=== PATIENT | male | born 1930 | race African-American/Black ===

== ENCOUNTER → 2016-04-17 | Outpatient (CLI) | payer MEDICARE ==
[~2016-04-17] MED LIST: ACET325T PO; ALBUAER3 INH; ARTHCRE; ASPI1TAB69 PO; BENZ100 PO; CHOL1TAB18 PO; DILT-60 PO; FLUT50SP EACH NARE; GLIP5TAB8 PO; HYDR25TA5 PO; LOSA100T PO; LUPR22.5 IM; MEDR4PAK PO; METF-382 PO; MOBI15TA PO; OXYC-432 PO; POLY99.0 EACH EYE; POTA10CA PO; PRAV80TA2 PO; PROS5TAB PO; TERA10CA3 PO; ZITHTAB PO; ZOLP10TA3 PO; [UNRECOGNIZED DRUG - CODE] IM
== END ==
LOC: CLAB 11:02
PROVIDERS: ATTEND Urology
DX: C61 Malignant neoplasm of prostate (principal)
CPT/HCPCS: 36415; 84153

== ENCOUNTER 2016-05-07 07:56 | Emergency (ER) | payer MEDICARE ==
[~2016-05-07] VITALS: Ht 185.4 cm; Wt 116.0 kg
[2016-05-07] VITALS (7 sets, daily range): BP systolic 103–135; BP diastolic 64–87; PULSE 69–131; RESP 16–18; TEMP 98.2–98.4; O2SAT 92–99
[~2016-05-07 07:56] MED LIST changes: -ALBUAER3 INH; -BENZ100 PO; -LUPR22.5 IM; -MEDR4PAK PO; -ZITHTAB PO
--- NOTE | 2016-05-07 08:09 | PD ---
HPI . SOB for several weeks Chief Complaint: shortness of breath Time Seen by Provider: 08:09 Travel History International Travel<30 days: No Contact w/Intl Traveler<30days: No Traveled to known affect area: No History of Present Illness HPI 85-year-old male with past medical history of prostate cancer in [facility], emphysema, hypertension, diabetes, GERD, chronic constipation, junctional arrhythmia, hyperlipidemia and vitamin D deficiency brought in by his daughter Jesenia who is visiting from [place]. Patient has a difficult time hearing and is somewhat of a poor historian, his daughter is providing most of the information. Daughter states that she came in from out of town last night to visit and patient was having significant shortness of breath. [facility] daughter decided to bring him into the emergency room for further workup. Patient states he's been having shortness of breath for several weeks with phlegm production. Often times the phlegm is white, but sometimes he is having yellow mucus production. He also reports bilateral feet swelling that has been ongoing. [facility] and was scheduled to see podiatry today. Today his only complaint is shortness of breath at rest. He denies any chest pain, fever, chills,, weakness, fatigue, abdominal pain, nausea or vomiting. Of note his HR is elevated at 131. PFSH Past Medical History Arthritis: Yes Blood Disorders: No Cancer: Yes (PROSTATE) Cardiovascular Problems: Yes High Cholesterol: Yes Chest Pain: No Congestive Heart Failure: No Diminished Hearing: Yes (R EAR ) Endocrine: No Gastrointestinal Disorders: Yes GERD: Yes Genitourinary: No Hypertension: Yes Immune Disorder: No Musculoskeletal: Yes Neurologic: Yes Psychiatric: No Reproductive: No Respiratory: Yes Past Surgical History Genitourinary Surgery: Yes (TURP) Neurologic Surgery: Yes (LUMBAR LAMINECTOMY) Social History Alcohol Use: Yes (SOCIALLY) Tobacco Use: No Substance Use: No Allergies-Medications (Allergen,Severity, Reaction): Coded Allergies: No Known Allergies (Verified , 01/04/16) Reported Meds & Prescriptions Reported Meds & Active Scripts Active Proair Hfa 8.5 GM Inh (Albuterol Sulfate) 90 Mcg/Act Aer 2 Puff INH Q6H PRN 108 mcg/actuation Tessalon Perles (Benzonatate) 100 Mg Cap 100 Mg PO TID PRN Zithromax Z-Catarino (Azithromycin) 250 Mg Dspk 250 Mg PO DIRECTED 500 MG (2 tabs) day 1, then 1 tab days 2-5. Medrol Dosepak (Methylprednisolone) 4 Mg Dspk 4 Mg PO DIRECTED Per Pharmacist direction Terazosin (Terazosin HCl) 10 Mg Cap 10 Mg PO HS Proscar (Finasteride) 5 Mg Tab 5 Mg PO DAILY Do not crush. Reported Zolpidem (Zolpidem Tartrate) 10 Mg Tab 10 Mg PO HS PRN Pravastatin 80 Mg Tab 80 Mg PO DAILY Potassium Chloride ER (Potassium Chloride) 10 Meq Cap 10 Meq PO DAILY Metformin ER (Metformin HCl) 1,000 Mg Riley 1,000 Mg PO BID With evening meal Mobic (Meloxicam) 15 Mg Tab 15 Mg PO DAILY Losartan (Losartan Potassium) 100 Mg Tab 100 Mg PO DAILY Hydrochlorothiazide 25 Mg Tab 25 Mg PO DAILY Glipizide 5 Mg Tab 5 Mg PO BIDAC Take 30 minutes before a meal Diltiazem CD 24 HR 120 Mg Caper 120 Mg PO DAILY Chantel-Rul Vitamin D (Cholecalciferol) 1,000 Unit Tab 1,000 Units PO DAILY Aspirin 81 Mg Tabdr 81 Mg PO DAILY Artificial Tears Opth Drops (Polyvinyl Alcohol) 1.4% Soln 1-2 Drop EACH EYE PRN PRN Acetaminophen 325 Mg Tab 325 Mg PO Q4-6H PRN Review of Systems General / Constitutional: No: Fever Eyes: No: Visual changes HENT: No: Headaches Cardiovascular: No: Chest Pain or Discomfort Respiratory: Positive: Cough, Shortness of Breath Gastrointestinal: No: Abdominal Pain Genitourinary: No: Dysuria Musculoskeletal: No: Pain Skin: No Rash Neurologic: No: Weakness Psychiatric: No: Depression Endocrine: No: Polydipsia Hematologic/Lymphatic: No: Easy Bruising Physical Exam Narrative GENERAL: AAO x 3, no acute distress, Well-nourished, well-developed patient. SKIN: Warm and dry. No visible rashes or bruising. HEAD: Normocephalic and atraumatic. EYES: No scleral icterus. No injection or drainage. ENT: No nasal drainage noted. Mucous membranes pink. Airway patent. B/L cerumen impaction. NECK: Supple, trachea midline. No JVD. No lymphadenopathy. CARDIOVASCULAR: Regular rate and rhythm without murmurs, gallops, or rubs. RESPIRATORY: Breath sounds diminished bilaterally. Rhonchi scattered R> L, scattered wheezing. No accessory muscle use. GASTROINTESTINAL: Abdomen soft, non-tender, nondistended. EXTREMITIES: B/L pedal edema 3+, stasis dermatitis b/l BACK: Nontender without obvious deformity. No CVA tenderness. PSYCH: AAO x 3, normal affect. Data Data Last Documented VS Vital Signs Date Time Temp Pulse Resp B/P Pulse Ox O2 Delivery O2 Flow Rate FiO2 05/07/16 13:39 98.2 69 18 135/74 95 Room Air 05/07/16 11:58 2 Orders Iv Access Insert/Monitor (05/07/16 08:27) Electrocardiogram (05/07/16 08:27) Ecg Monitoring (05/07/16 08:27) Oximetry (05/07/16 08:27) Oxygen Administration (05/07/16 08:27) Chest, Single Ap (05/07/16 08:27) Sodium Chloride 0.9% Flush (Ns Flush) (05/07/16 08:30) Basic Metabolic Panel (Bmp) (05/07/16 08:34) B-Type Natriuretic Peptide (05/07/16 08:34) Ckmb (Isoenzyme) Profile (05/07/16 08:34) Complete Blood Count With Diff (05/07/16 08:34) Prothrombin Time / Inr (Pt) (05/07/16 08:34) Troponin I (05/07/16 08:34) Sodium Chloride 0.9% Flush (Ns Flush) (05/07/16 08:45) Albuterol-Ipratropium Neb (Duoneb Neb) (05/07/16 08:45) Sodium Chlorid 0.9% 500 Ml Inj (Ns 500 M (05/07/16 08:45) Diltiazem Inj (Cardizem Inj) (05/07/16 09:30) CKMB (05/07/16 08:47) CKMB% (05/07/16 08:47) Lorazepam Inj (Ativan Inj) (05/07/16 11:30) Ventilation & Perfusion Scan (05/07/16 ) Labs Laboratory Tests Test 05/07/16 05/07/16 01:03 08:47 B-Type Natriuretic Peptide 329 PG/ML White Blood Count 11.2 TH/MM3 Red Blood Count 4.06 MIL/MM3 Hemoglobin 12.4 GM/DL Hematocrit 36.9 % Mean Corpuscular Volume 90.9 FL Mean Corpuscular Hemoglobin 30.7 PG Mean Corpuscular Hemoglobin 33.7 % Concent Red Cell Distribution Width 14.2 % Platelet Count 138 TH/MM3 Mean Platelet Volume 10.7 FL Neutrophils (%) (Auto) 41.8 % Lymphocytes (%) (Auto) 45.8 % Monocytes (%) (Auto) 10.5 % Eosinophils (%) (Auto) 1.4 % Basophils (%) (Auto) 0.5 % Neutrophils # (Auto) 4.7 TH/MM3 Lymphocytes # (Auto) 5.1 TH/MM3 Monocytes # (Auto) 1.2 TH/MM3 Eosinophils # (Auto) 0.2 TH/MM3 Basophils # (Auto) 0.1 TH/MM3 CBC Comment DIFF FINAL Differential Comment Prothrombin Time 11.9 SEC Prothromb Time International 1.1 RATIO Ratio Sodium Level 137 MEQ/L Potassium Level 3.8 MEQ/L Chloride Level 103 MEQ/L Carbon Dioxide Level 25.6 MEQ/L Anion Gap 8 MEQ/L Blood Urea Nitrogen 16 MG/DL Creatinine 1.19 MG/DL Estimat Glomerular Filtration 70 ML/MIN Rate Random Glucose 208 MG/DL Calcium Level 8.8 MG/DL Total Creatine Kinase 227 U/L Creatine Kinase MB 0.9 NG/ML Troponin I LESS THAN 0.02 NG/ML MDM Medical Decision Making Medical Screen Exam Complete: Yes Emergency Medical Condition: Yes Medical Record Reviewed: Yes Differential Diagnosis COPD exacerbation, PNA, Bronchitis, arrhythmia, ACS, pulmonary emboli Narrative Course 85-year-old male with past medical history of prostate cancer on treatment, ? COPD possibly emphysema, hypertension, diabetes, GERD, chronic constipation, hyperlipidemia and vitamin D deficiency brought in by his daughter Jesenia who is visiting from [place]. Patient has a difficult time hearing and is somewhat of a poor historian, his daughter is providing most of the information. Daughter states that she came in from out of town last night to visit and patient was having significant shortness of breath. [facility], daughter decided to bring him into the emergency room for further workup. Patient states he's been having shortness of breath for several weeks with phlegm production. Often times the phlegm is white, but sometimes he is having yellow mucus production. He also reports bilateral feet swelling that has been ongoing. [facility] with [facility] and was scheduled to see podiatry today. Today his only complaint is shortness of breath at rest. He denies any chest pain, fever, chills,, weakness, fatigue, abdominal pain, nausea or vomiting. Of note his HR is elevated at 131. Patient seen and examined. Case discussed with Dr. Carson. Recommend CXR, EKG ,CBC, BMP, BNP, cardiac enzymes, coags. Patient was given nebulizer treatment. CXR with discoid atelectasis. EKG sinus tach with old [place]. CBC with low grade anemia. Mildly elevated WBC. Platelets 138 BMP elevated glucose BNP 329 Cardiac enzymes With hx of Prostate Cancer we opted for CT angio, however, patient became very anxious and despite a dose of Ativan, declined testing. We ordered V/Q scan: intermediate, but we suspect very low probability of PE, therefore patient was treated for COPD exacerbation and cleared for discharge home. Prior to discharge patient was stable, resting comfortably in the bed. His case and follow up care was discussed with his daughter who remained at his bedside. Advised to take prednisone 50 mg daily x 5 days. Zpack tessalon perles PRN Proair HFA and use nebulizers at home as needed Follow [facility] with [facility]. Patient's daughter verbalized understanding of instructions, questions were answered, and thanked me for her father's care. I advised them her if his condition worsens, please return to the nearest emergency room for further care. Diagnosis Primary Impression: COPD exacerbation Additional Impression: Shortness of breath Patient Instructions: COPD (Chronic Obstructive Pulmonary Disease) (ED), General Instructions Additional Instructions: Take all medications as prescribed. Follow-up with your primary care provider at the [facility] in the next 3 days. Return to the emergency room her symptoms worsen. Med/Other Pt SpecificInfo: Prescription(s) given Scripts Albuterol 8.5 GM Inh (Proair Hfa 8.5 GM Inh)90 Mcg/Act Aer2 Puff INH Q6H PRN ( SHORTNESS OF BREATH) #1 INHALER Ref 0 108 mcg/actuation Prov:Poornima Puentes 05/07/16 Benzonatate (Tessalon Perles)100 Mg [id number] Mg PO TID PRN (COUGH) #30 CAP Ref 0 Prov:Poornima Puentes 05/07/16 Azithromycin (Zithromax Z-Catarino)250 Mg [id number] Mg PO DIRECTED #1 DSPK Ref 0 500 MG (2 tabs) day 1, then 1 tab days 2-5. Prov:Poornima Puentes 05/07/16 Methylprednisolone Dosepak (Medrol Dosepak)4 Mg Dspk4 Mg PO DIRECTED #1 DSPK Ref 0 Per Pharmacist direction Prov:Poornima Puentes 05/07/16 Disposition: 01 DISCHARGE HOME Condition: Stable Poornima Puentes May 07, 2016 08:09
[2016-05-07] MEDS ORDERED: SODIUM CHLORIDE 0.9% FLUSH 5 ML FLUSH IVF PRN ×2 (08:30→08:45)
[2016-05-07] MEDS ORDERED: RESP: ALBUTEROL 2.5 MG/IPRATROPIUM 0.5 MG NEB (SCH) INH ONE (08:45)
[2016-05-07] MEDS ORDERED: SODIUM CHLORID 0.9% 500 ML INJ 500 ML IV ONE (08:45)
[2016-05-07 09:19] LABS: AUTOMATED NEUTROPHIL # 4.7 TH/MM3 (1.8-7.7); BASOPHIL # 0.1 TH/MM3 (0-0.2); BASOPHIL % 0.5 % (0.0-2.0); EOSINOPHIL # 0.2 TH/MM3 (0-0.4); EOSINOPHIL % 1.4 % (0.0-4.0); HEMATOCRIT 36.9 % (39.0-51.0); HEMO FLAGS DIFF FINAL; LYMPH % 45.8 % (9.0-44.0); LYMPHOCYTE # 5.1 TH/MM3 (1.0-4.8); MEAN CELL VOLUME 90.9 FL (80.0-100.0); MEAN CORPUSCULAR HEMOGLOBIN 30.7 PG (27.0-34.0); MEAN CORPUSCULAR HGB CONC 33.7 % (32.0-36.0); MONO % 10.5 % (0.0-8.0); NEUT % 41.8 % (16.0-70.0); PLATELET COUNT 138 TH/MM3 (150-450); RED BLOOD COUNT 4.06 MIL/MM3 (4.50-5.90); RED CELL DISTRIBUTION WIDTH 14.2 % (11.6-17.2); WHITE BLOOD COUNT 11.2 TH/MM3 (4.0-11.0)
[2016-05-07 09:26] LABS: INTERNATIONAL NORMALIZED RATIO 1.1 RATIO; PROTHROMBIN TIME - PATIENT 11.9 SEC (9.8-11.6)
--- NOTE | 2016-05-07 09:28 | RADRPT ---
EXAM DATE/TIME: 05/07/2016 08:32 [facility] COMPARISON: CHEST SINGLE AP, September 16, 2012, 11:16. INDICATIONS : Cough, chest pain MEDICAL HISTORY : Cholelithiasis. SURGICAL HISTORY : None. ENCOUNTER: Initial ACUITY: 1 month PAIN SCORE: 0/10 LOCATION: Bilateral chest FINDINGS: A single AP erect portable view of the chest was obtained and demonstrates discoid atelectasis at the left lung base. There is mild motion artifact with no other consolidation. The right lung is clear. The heart size is within normal limits with no perihilar edema. The bony thorax is intact with degene rative change again noted in the right glenohumeral joint. There are multiple overlying electrocardio gram leads. CONCLUSION: Discoid atelectasis at the left lung base. There is mild motion artifact. Brennen Doan MD on May 07, 2016 at 9:26 Board Certified Radiologist. This report was verified electronically.
[2016-05-07] MEDS ORDERED: DILTIAZEM HCL 25 MG/5 ML VIAL IV ONE (09:30)
[2016-05-07 09:48] LABS: ANION GAP 8 MEQ/L (5-15); BICARBONATE 25.6 MEQ/L (21.0-32.0); BLOOD UREA NITROGEN 16 MG/DL (7-18); CHLORIDE 103 MEQ/L (98-107); CREATINE KINASE 227 U/L (39-308); GLOMERULAR FILTRATION RATE 70 ML/MIN (>89); POTASSIUM 3.8 MEQ/L (3.5-5.1); SODIUM (NA) 137 MEQ/L (136-145)
--- NOTE | 2016-05-07 09:59 | PD ---
Data Data Last Documented VS Vital Signs Date Time Temp Pulse Resp B/P Pulse Ox O2 Delivery O2 Flow Rate FiO2 05/07/16 13:39 98.2 69 18 135/74 95 Room Air 05/07/16 11:58 2 Orders Iv Access Insert/Monitor (05/07/16 08:27) Electrocardiogram (05/07/16 08:27) Ecg Monitoring (05/07/16 08:27) Oximetry (05/07/16 08:27) Oxygen Administration (05/07/16 08:27) Chest, Single Ap (05/07/16 08:27) Sodium Chloride 0.9% Flush (Ns Flush) (05/07/16 08:30) Basic Metabolic Panel (Bmp) (05/07/16 08:34) B-Type Natriuretic Peptide (05/07/16 08:34) Ckmb (Isoenzyme) Profile (05/07/16 08:34) Complete Blood Count With Diff (05/07/16 08:34) Prothrombin Time / Inr (Pt) (05/07/16 08:34) Troponin I (05/07/16 08:34) Sodium Chloride 0.9% Flush (Ns Flush) (05/07/16 08:45) Albuterol-Ipratropium Neb (Duoneb Neb) (05/07/16 08:45) Sodium Chlorid 0.9% 500 Ml Inj (Ns 500 M (05/07/16 08:45) Diltiazem Inj (Cardizem Inj) (05/07/16 09:30) CKMB (05/07/16 08:47) CKMB% (05/07/16 08:47) Lorazepam Inj (Ativan Inj) (05/07/16 11:30) Ventilation & Perfusion Scan (05/07/16 ) Labs Laboratory Tests Test 05/07/16 05/07/16 01:03 08:47 B-Type Natriuretic Peptide 329 PG/ML White Blood Count 11.2 TH/MM3 Red Blood Count 4.06 MIL/MM3 Hemoglobin 12.4 GM/DL Hematocrit 36.9 % Mean Corpuscular Volume 90.9 FL Mean Corpuscular Hemoglobin 30.7 PG Mean Corpuscular Hemoglobin 33.7 % Concent Red Cell Distribution Width 14.2 % Platelet Count 138 TH/MM3 Mean Platelet Volume 10.7 FL Neutrophils (%) (Auto) 41.8 % Lymphocytes (%) (Auto) 45.8 % Monocytes (%) (Auto) 10.5 % Eosinophils (%) (Auto) 1.4 % Basophils (%) (Auto) 0.5 % Neutrophils # (Auto) 4.7 TH/MM3 Lymphocytes # (Auto) 5.1 TH/MM3 Monocytes # (Auto) 1.2 TH/MM3 Eosinophils # (Auto) 0.2 TH/MM3 Basophils # (Auto) 0.1 TH/MM3 CBC Comment DIFF FINAL Differential Comment Prothrombin Time 11.9 SEC Prothromb Time International 1.1 RATIO Ratio Sodium Level 137 MEQ/L Potassium Level 3.8 MEQ/L Chloride Level 103 MEQ/L Carbon Dioxide Level 25.6 MEQ/L Anion Gap 8 MEQ/L Blood Urea Nitrogen 16 MG/DL Creatinine 1.19 MG/DL Estimat Glomerular Filtration 70 ML/MIN Rate Random Glucose 208 MG/DL Calcium Level 8.8 MG/DL Total Creatine Kinase 227 U/L Creatine Kinase MB 0.9 NG/ML Troponin I LESS THAN 0.02 NG/ML MDM Supervised Visit with RICHARD: Yes Narrative Course I, Dr. Carson, have reviewed the advance practice practioner's documentation and am in agreement, met with the patient face to face, made the diagnosis, and the medical decision making was done by me. *My assessment and Findings: 85-year-old male with history of HTN, HLD, DM, history of tobacco abuse but no known COPD here for dyspnea. Patient is a poor historian and presents only after his daughter, who is visiting from [place], brought him in. Apparently he has had months of dyspnea, phlegm production mostly white to yellow. Bilateral lower cavity pedal edema. Shortness of breath is present at rest but is worse with exertion. No chest pain. On exam patient does not appear in any respiratory distress. He is tachycardic with heart rate in the 120s. Bilateral lower extremity pedal edema 1+. Minimal expiratory wheezing. Differential includes COPD, bronchitis, pneumonia, CHF, arrhythmia, symptomatic anemia, ACS. Lead EKG shows sinus tachycardia, first- degree AV block. Q waves in leads 3, aVF suggestive of previous NV. Patient was given neb, 20 mg diltiazem IV. He does have a history of junctional tachycardia. Interestingly also has a history of prostate cancer status post TURP and patient/daughter unable to tell me whether he still has any active disease. Chest x-ray notable only for discoid atelectasis. Labs notable only for minimally elevated BNP 329. I attempted CT pulmonary angiogram but patient refused even with Ativan patient was too nervous, claustrophobic. VQ scan ordered showing moderate size matched defect in the left lateral lung which may correspond to the discoid atelectasis. Intermediate probability for PE. Overall my suspicion for PE is low and I would not pursue this further. Will treat for COPD exacerbation, bronchitis with steroids for home even the duration of his symptoms patient was encouraged to follow-up with PCP in the next 2-3 days. Additional Instruction: Take all medications as prescribed. Follow-up to primary care provider at the [facility]. Return to the emergency room her symptoms worsen. Disposition: 01 DISCHARGE HOME Condition: Stable Louisa Carson MD May 07, 2016 09:59
[2016-05-07 10:01] LABS: CKMB 0.9 NG/ML (0.5-3.6)
[2016-05-07] MEDS ORDERED: LORazepam 2 MG/ML VIAL IV PUSH ONE (11:30)
--- NOTE | 2016-05-07 14:02 | RADRPT ---
EXAM DATE/TIME: 05/07/2016 13:07 [facility] COMPARISON: CHEST SINGLE AP, May 07, 2016, 8:32. INDICATIONS : Shortness of breath for two months. DOSE: 8.0 mCi Tc99m MAA IV 0.60 mCi Tc99m DTPA aerosol MEDICAL HISTORY : Hypertension. Carcinoma, prostate. Diabetes mellitus type 2. SURGICAL HISTORY : Fusion, lumbar. ENCOUNTER: Initial ACUITY: 2 months PAIN SCALE: 0/10 LOCATION: chest TECHNIQUE: Following five minutes of tidal breathing of DTPA aerosol, planar images of the lungs were performed in eight projections. The patient was then injected with MAA, and eight-view perfusion scan was perf ormed. FINDINGS: The comparison plain film study demonstrates an area of discoid atelectasis at the left lung base. Th ere is mild elevation left hemidiaphragm as well. There is a mildly inhomogeneous pattern of aerosol delivery to the periphery of both lungs. Is a smal l amount of activity which appears dictated in the stomach. There is a moderate-sized defect in the l ateral left lung. The perfusion lung scan demonstrates a fairly homogeneous pattern of uptake in both lungs with modera te-sized defect in the left lateral lung which appears matched to the ventilatory defect. CONCLUSION: Moderate size matched defect in the left lateral lung which may correspond to the area of discoid atelectasis. This is consistent with intermediate ability for pulmonary embolism. Brennen Doan MD on May 07, 2016 at 13:55 Board Certified Radiologist. This report was verified electronically.
[2016-05-07] MEDS ORDERED: ZITHTAB PO (14:16)
[2016-05-07] MEDS ORDERED: BENZ100 PO (14:16)
[2016-05-07] MEDS ORDERED: MEDR4PAK PO (14:16)
[2016-05-07] MEDS ORDERED: ALBUAER3 INH (14:16)
--- NOTE | 2016-05-08 08:32 | EKG ---
Date Performed: 05/07/2016 Time Performed: 08:26:14 PTAGE: 85 years EKG: SINUS TACHYCARDIA WITH FIRST DEGREE AV BLOCK INTRAVENTRICULAR CONDUCTION DELAY INFERIOR ALESIA CARDIAL INFARCTION ABNORMAL ECG PREVIOUS TRACING : 09/16/2012 21.55 Compared to prior tracing no significant change DOCTOR: Damien Norris Interpretating Date/Time 05/08/2016 08:30:54
[2016-07-17] MEDS ORDERED: LUPR22.5 IM (13:30)
== END 2016-05-07 15:00 | disposition home or self-care (01) ==
LOC: NEPE 07:56
DX: J44.1 Chronic obstructive pulmonary disease with (acute) exacerbation (principal); R06.02 Shortness of breath; R94.31 Abnormal electrocardiogram [ECG] [EKG]; I10 Essential (primary) hypertension; E11.9 Type 2 diabetes mellitus without complications; M79.89 Other specified soft tissue disorders; E78.00 Pure hypercholesterolemia, unspecified
CPT/HCPCS: 71010; 78582; 80048; 82550; 82552; 83880; 84484; 85025; 85610; 93005; 94664; 96374; 96375; 99285; A9540; A9567; J2060; J7040

== ENCOUNTER → 2017-01-04 | Outpatient (CLI) | payer MEDICARE ==
[~2017-01-04] MED LIST changes: -ACET325T PO; +ALBUAER3 INH; -ARTHCRE; -ASPI1TAB69 PO; +ASPI81TA5 PO; +BENZ100 PO; -CHOL1TAB18 PO; -FLUT50SP EACH NARE; +MEDR4PAK PO; +NON-325T2 PO; -OXYC-432 PO; +VITA1000 PO; +ZITHTAB PO
== END ==
LOC: CLAB 11:35
DX: C61 Malignant neoplasm of prostate (principal)
CPT/HCPCS: 36415; 84153

== ENCOUNTER → 2017-04-17 | Outpatient (CLI) | payer MEDICARE ==
[~2017-04-17] MED LIST changes: -ASPI81TA5 PO; -DILT-60 PO; +DILT120C50 PO; +ECASA81 PO
== END ==
LOC: CLAB 10:05
PROVIDERS: ATTEND Urology
DX: C61 Malignant neoplasm of prostate (principal)
CPT/HCPCS: 36415; 84153

== ENCOUNTER → 2017-07-24 | Outpatient (CLI) | payer MEDICARE ==
[~2017-07-24] MED LIST changes: -[UNRECOGNIZED DRUG - CODE] IM
== END ==
LOC: CLAB 15:09
PROVIDERS: ATTEND Urology
DX: Z85.46 Personal history of malignant neoplasm of prostate (principal)
CPT/HCPCS: 36415; 84153